=== PATIENT | female | born 1960 | race Hispanic/Latino ===

== ENCOUNTER 2019-12-06 05:36 | Inpatient (IN) | payer OTHER ==
[~2019-12-06] VITALS: Ht 149.9 cm; Wt 74.6 kg
[2019-12-06 06:45] LABS: BASOPHILS % (AUTO) 0.2 % (0.0-5.0); HEMATOCRIT 32.5 % (36-48); LYMPHOCYTES % (AUTO) 27.4 % (21.0-51.0); MEAN CORPUSCULAR HEMOGLOBIN 32.3 pg (27.0-33.0); MEAN CORPUSCULAR HGB CONC 34.2 g/dL (32.0-36.0); MEAN CORPUSCULAR VOLUME 94.5 fL (79-99); MONOCYTES % (AUTO) 8.4 % (3.0-13.0); NEUTROPHILS % (AUTO) 63.1 % (40.0-77.0); PLATELET COUNT (AUTO) 180 K/uL (130-400); RED BLOOD CELL COUNT(AUTO) 3.44 MIL/uL (4.00-5.50); RED CELL DISTRIBUTION WIDTH 14.3 % (11.0-15.5); WHITE BLOOD COUNT (AUTO) 4.3 K/uL (4.8-10.8)
[2019-12-06 06:59] LABS: ALBUMIN 3.3 g/dL (3.5-5.0); BILIRUBIN,TOTAL 0.4 mg/dL (0.2-1.0); CREATININE 0.8 mg/dL (0.5-1.5); POTASSIUM 3.2 mmol/L (3.5-5.1)
[2019-12-06 07:12] LABS: B-TYPE NATRIURETIC PEPTIDE 7 pg/mL (0-100)
[2019-12-06] MEDS ORDERED: GUAIFENESIN SUGAR-FREE 100 MG/5 ML UDCUP ONE (08:37)
[2019-12-06] MEDS ORDERED: ZOSYN 3.375GM+NS 50ML 50 ML IV ONE (08:37)
[2019-12-06] MEDS ORDERED: POTASSIUM CHLORIDE 20 MEQ ERTAB PO ONE (08:37)
[2019-12-06] MEDS ORDERED: ACETAMINOPHEN 325 MG TAB ONE (08:37)
[2019-12-06] MEDS ORDERED: DOXYCYCLINE 100MG+NS 250ML IV SCH (08:45)
[2019-12-06] MEDS ORDERED: ONDANSETRON HCL 4 MG/2 ML VIAL IV PRN (08:45)
[2019-12-06] MEDS ORDERED: ACETAMINOPHEN 325 MG TAB PO PRN (08:45)
[2019-12-06] MEDS ORDERED: DIPHENHYDRAMINE HCL 25 MG CAPSULE PO PRN (08:45)
[2019-12-06] MEDS ORDERED: DiphenhydrAMINE HCL 50 MG/ML VIAL IV PRN (08:45)
[2019-12-06] MEDS ORDERED: MAG HYDROX/AL HYDROX/SIMETH ES 30 ML SUSP UDCUP PO PRN (08:45)
[2019-12-06] MEDS ORDERED: NITROGLYCERIN 0.4 MG SL TAB SL PRN (08:45)
[2019-12-06] MEDS ORDERED: HYDRALAZINE HCL 20 MG/ML VIAL IV PRN (08:45)
[2019-12-06] MEDS ORDERED: ERGOCALCIFEROL (VITAMIN D2) 50,000 UNIT CAPSULE PO SCH (08:45)
[2019-12-06] MEDS ORDERED: FAMOTIDINE 20MG TAB 20 MG TAB PO SCH (09:00)
[2019-12-06 09:20] LABS: CRP QUANTITATIVE 153.5 mg/L (0.00-9.0)
[2019-12-06] MEDS: BENZONATATE 100 MG CAPSULE PO SCH ×3 (10:46→21:04)
[2019-12-06] MEDS: ACETYLCYSTEINE 600 MG CAPSULE PO SCH ×2 (10:46→21:04)
[2019-12-06] MEDS: ASCORBIC ACID 500 MG TAB PO SCH (10:46)
[2019-12-06] MEDS: METHYLPREDNISOLONE SOD SUCC 40MG/ML 1ML IVP SCH ×3 (10:46→21:04)
[2019-12-06] MEDS: CEFTRIAXONE SODIUM 1 GM IVP SCH ×2 (10:47→21:04)
[2019-12-06] MEDS: ZINC SULFATE 220 CAPSULE PO SCH (10:47)
[2019-12-06] MEDS: DOXYCYCLINE 100MG+NS 250ML 250 ML IV SCH ×2 (10:48→21:03)
[2019-12-06] MEDS: ENOXAPARIN SODIUM 40 MG/0.4 ML SYRINGE SQ SCH (10:48)
[2019-12-06 11:41] VITALS: BP 110/68
[2019-12-06 16:00] VITALS: BP 117/70
[2019-12-06 19:33] VITALS: BP 124/74
[2019-12-06] MEDS: FAMOTIDINE/PF 20 MG/2 ML VIAL IV SCH (21:04)
[2019-12-06 23:47] VITALS: BP 119/64
[2019-12-07 03:22] VITALS: BP 117/63
[2019-12-07 07:47] LABS: BASOPHILS % (AUTO) 0.2 % (0.0-5.0); HEMATOCRIT 34.8 % (36-48); LYMPHOCYTES % (AUTO) 27.4 % (21.0-51.0); MEAN CORPUSCULAR HEMOGLOBIN 32.6 pg (27.0-33.0); MEAN CORPUSCULAR HGB CONC 33.9 g/dL (32.0-36.0); MEAN CORPUSCULAR VOLUME 96.1 fL (79-99); MONOCYTES % (AUTO) 11.1 % (3.0-13.0); NEUTROPHILS % (AUTO) 60.5 % (40.0-77.0); PLATELET COUNT (AUTO) 224 K/uL (130-400); RED BLOOD CELL COUNT(AUTO) 3.62 MIL/uL (4.00-5.50); RED CELL DISTRIBUTION WIDTH 14.5 % (11.0-15.5)
[2019-12-07 08:08] LABS: ALANINE AMINOTRANSFERASE 40 U/L (12-78); ASPARTATE AMINOTRANSFERASE 50 U/L (10-37); BILIRUBIN,TOTAL 0.3 mg/dL (0.2-1.0); CARBON DIOXIDE 29 mmol/L (21-32); CHLORIDE 104 mmol/L (101-111); CREATININE 0.6 mg/dL (0.5-1.5); GLOMERULAR FILTR. RATE CALC 108 mL/min (>60); GLUCOSE,RANDOM 162 mg/dL (70-105); LACTATE DEHYDROGENASE 498 U/L (81-234); POTASSIUM 3.7 mmol/L (3.5-5.1); SODIUM SERUM 141 mmol/L (136-145); TOTAL PROTEIN, SERUM 7.2 g/dL (6.0-8.3); UREA NITROGEN, BLOOD 6 mg/dL (7-18)
[2019-12-07 08:29] VITALS: BP 113/62
[2019-12-07] MEDS: CEFTRIAXONE SODIUM 1 GM IVP SCH ×2 (09:11→20:27)
[2019-12-07] MEDS: DOXYCYCLINE 100MG+NS 250ML 250 ML IV SCH ×2 (09:12→20:27)
[2019-12-07] MEDS: ENOXAPARIN SODIUM 40 MG/0.4 ML SYRINGE SQ SCH (09:12)
[2019-12-07] MEDS: ACETYLCYSTEINE 600 MG CAPSULE PO SCH ×2 (09:13→20:28)
[2019-12-07] MEDS: ASCORBIC ACID 500 MG TAB PO SCH (09:14)
[2019-12-07] MEDS: ZINC SULFATE 220 CAPSULE PO SCH (09:14)
[2019-12-07] MEDS: METHYLPREDNISOLONE SOD SUCC 40MG/ML 1ML IVP SCH ×3 (09:14→20:27)
[2019-12-07] MEDS: FAMOTIDINE/PF 20 MG/2 ML VIAL IV SCH ×2 (09:14→20:27)
[2019-12-07] MEDS: BENZONATATE 100 MG CAPSULE PO SCH ×3 (09:14→20:27)
[2019-12-07 12:00] VITALS: BP 121/72
--- NOTE | 2019-12-07 12:29 | NUR ---
DC Plan Patient requested to have son removed from face sheet and replace with sister Kely Weeks (ph: [phone]) for both Next of Kin and Person to Notify. Notified financial counselors via email. [facility] lives with 2 adult sons and their children (total of 10 in the house). States everyone helps out. Sister Kely helps with insurance and anything medical. States ambulates with use of a cane. Verbalized feeling weak due to chemo treatment. Informed CM of previous insurance with [employer] that in October. States should have TRS that will be in effect 90 days from time of dismissal. Informed CM that sister knows more. Emailed this info to financial counselors and to [employer]. No others needs verbalized. DCP is back to home with family. CD Addendum: 12/07/19 at 1237 by ALONDRA ZHU CM Amended: Links added.
--- NOTE | 2019-12-07 15:04 | NUR ---
PHONE CALL Family updated.
[2019-12-07 16:12] VITALS: BP 119/59
[2019-12-07] MEDS ORDERED: POTASSIUM CHLORIDE 10% ELIXIR 20 MEQ/15 ML UDCUP PO PRN (18:45)
[2019-12-07] MEDS ORDERED: LIDOCAINE HCL-MPF 1% 2ML VIAL IV PRN (18:45)
[2019-12-07] MEDS ORDERED: POTASSIUM CHLORIDE 20MEQ/100ML 100 ML IV PRN (18:45)
[2019-12-07 20:38] VITALS: BP 127/75
[2019-12-07 23:53] VITALS: BP 123/72
[2019-12-08 04:19] VITALS: BP 113/68
[2019-12-08 05:38] LABS: BASOPHILS % (AUTO) 0.1 % (0.0-5.0); HEMATOCRIT 32.2 % (36-48); LYMPHOCYTES % (AUTO) 11.9 % (21.0-51.0); MEAN CORPUSCULAR HEMOGLOBIN 32.4 pg (27.0-33.0); MEAN CORPUSCULAR HGB CONC 34.2 g/dL (32.0-36.0); MEAN CORPUSCULAR VOLUME 94.7 fL (79-99); NEUTROPHILS % (AUTO) 82.2 % (40.0-77.0); PLATELET COUNT (AUTO) 247 K/uL (130-400); RED CELL DISTRIBUTION WIDTH 14.6 % (11.0-15.5)
[2019-12-08 06:02] LABS: ALANINE AMINOTRANSFERASE 35 U/L (12-78); ALBUMIN 2.8 g/dL (3.5-5.0); ASPARTATE AMINOTRANSFERASE 38 U/L (10-37); BILIRUBIN,TOTAL 0.2 mg/dL (0.2-1.0); CARBON DIOXIDE 27 mmol/L (21-32); CHLORIDE 106 mmol/L (101-111); CREATININE 0.7 mg/dL (0.5-1.5); GLOMERULAR FILTR. RATE CALC 90 mL/min (>60); GLUCOSE,RANDOM 238 mg/dL (70-105); LACTATE DEHYDROGENASE 412 U/L (81-234); POTASSIUM 3.4 mmol/L (3.5-5.1); SODIUM SERUM 140 mmol/L (136-145); TOTAL PROTEIN, SERUM 6.5 g/dL (6.0-8.3); UREA NITROGEN, BLOOD 11 mg/dL (7-18)
[2019-12-08 08:00] VITALS: BP 113/66
--- NOTE | 2019-12-08 08:00 | NUR ---
ASSESSMENT ENCOUTERED PT A&OX3, CALM COOPERATIVE AND DOES NOT APPEAR TO BE IN ANY DISTRESS NOR ANY NEURO DEFICITS PRESENT. PT DENIES PAIN, DIZZINESS OR LIGHTHEADEDNESS BUT DOES C/O DYSPNEA ON EXERTION, PT IS AMBULATORY, GAIT STEADY AND STRONG WITH STAND BY ASSIST, INFORMED THAT PT MAY HAVE TO BE PLACED ON O2NC EXTENSION TO REDUCE SYMPTOMS OF DYSPNEA ON EXERTION. CALL LIGHT WITHIN REACH.
[2019-12-08] MEDS: DOXYCYCLINE 100MG+NS 250ML 250 ML IV SCH ×2 (09:10→21:01)
[2019-12-08] MEDS: CEFTRIAXONE SODIUM 1 GM IVP SCH ×2 (09:10→21:00)
[2019-12-08] MEDS: ASCORBIC ACID 500 MG TAB PO SCH (09:10)
[2019-12-08] MEDS: BENZONATATE 100 MG CAPSULE PO SCH ×3 (09:10→21:01)
[2019-12-08] MEDS: ZINC SULFATE 220 CAPSULE PO SCH (09:10)
[2019-12-08] MEDS: METHYLPREDNISOLONE SOD SUCC 40MG/ML 1ML IVP SCH ×3 (09:11→21:00)
[2019-12-08] MEDS: ACETYLCYSTEINE 600 MG CAPSULE PO SCH ×2 (09:11→21:01)
[2019-12-08] MEDS: ENOXAPARIN SODIUM 40 MG/0.4 ML SYRINGE SQ SCH (09:11)
[2019-12-08] MEDS: FAMOTIDINE/PF 20 MG/2 ML VIAL IV SCH ×2 (09:11→21:01)
[2019-12-08 12:17] VITALS: BP 105/61
--- NOTE | 2019-12-08 15:45 | NUR ---
Family updated by primary nurse.
[2019-12-08 16:27] VITALS: BP 118/63
[2019-12-08 19:30] VITALS: BP 133/66
[2019-12-08] MEDS: INSULIN LISPRO 100 UNIT/ML 3ML SQ SCH (20:59)
[2019-12-08] MEDS ORDERED: INSULIN GLARGINE 100 UNITS/ML 10 ML VIAL SQ SCH (21:00)
[2019-12-09] VITALS: BP 141/73
[2019-12-09 04:00] VITALS: BP 143/75
[2019-12-09 05:41] LABS: BASOPHILS % (AUTO) 0.2 % (0.0-5.0); HEMATOCRIT 32.8 % (36-48); LYMPHOCYTES % (AUTO) 10.7 % (21.0-51.0); MEAN CORPUSCULAR HEMOGLOBIN 32.2 pg (27.0-33.0); MEAN CORPUSCULAR HGB CONC 33.8 g/dL (32.0-36.0); MEAN CORPUSCULAR VOLUME 95.1 fL (79-99); MONOCYTES % (AUTO) 5.6 % (3.0-13.0); NEUTROPHILS % (AUTO) 80.9 % (40.0-77.0); NUCLEATED RED BLOOD CELLS 0.2 % (0.0-0.19); PLATELET COUNT (AUTO) 280 K/uL (130-400); RED BLOOD CELL COUNT(AUTO) 3.45 MIL/uL (4.00-5.50); RED CELL DISTRIBUTION WIDTH 14.4 % (11.0-15.5); WHITE BLOOD COUNT (AUTO) 9.6 K/uL (4.8-10.8)
[2019-12-09 06:06] LABS: ALANINE AMINOTRANSFERASE 42 U/L (12-78); ASPARTATE AMINOTRANSFERASE 39 U/L (10-37); BILIRUBIN,TOTAL 0.3 mg/dL (0.2-1.0); CARBON DIOXIDE 26 mmol/L (21-32); CHLORIDE 104 mmol/L (101-111); CREATININE 0.6 mg/dL (0.5-1.5); GLOMERULAR FILTR. RATE CALC 108 mL/min (>60); GLUCOSE,RANDOM 189 mg/dL (70-105); LACTATE DEHYDROGENASE 415 U/L (81-234); POTASSIUM 3.3 mmol/L (3.5-5.1); SODIUM SERUM 142 mmol/L (136-145); TOTAL PROTEIN, SERUM 6.7 g/dL (6.0-8.3); UREA NITROGEN, BLOOD 10 mg/dL (7-18)
[2019-12-09] MEDS: INSULIN LISPRO 100 UNIT/ML 3ML SQ SCH ×7 (06:16→21:15)
[2019-12-09 06:18] LABS: HEMOGLOBIN A1C 7.5 % (4.0-6.0)
--- NOTE | 2019-12-09 07:30 | NUR ---
ASSESSMENT ENCOUNTERED PT A&OX3, CALM COOPERATIVE AND DOES NOT APPEAR TO BE IN ANY DISTRESS NOR ANY NEURO DEFICITS PRESENT. PT DENIES PAIN, SOB, NAUSEA. PT IS AMBULATORY, GAIT SLOW BUT STEADY WITH STAND BY ASSIST WITH O2 EXTENSION TUBING. CALL LIGHT WITHIN REACH.
[2019-12-09 08:14] VITALS: BP 96/58
[2019-12-09] MEDS: BENZONATATE 100 MG CAPSULE PO SCH ×3 (09:25→21:12)
[2019-12-09] MEDS: METHYLPREDNISOLONE SOD SUCC 40MG/ML 1ML IVP SCH ×3 (09:25→21:13)
[2019-12-09] MEDS: ASCORBIC ACID 500 MG TAB PO SCH (09:25)
[2019-12-09] MEDS: FAMOTIDINE/PF 20 MG/2 ML VIAL IV SCH ×2 (09:25→21:12)
[2019-12-09] MEDS: CEFTRIAXONE SODIUM 1 GM IVP SCH (09:25)
[2019-12-09] MEDS: ZINC SULFATE 220 CAPSULE PO SCH (09:25)
[2019-12-09] MEDS: DOXYCYCLINE 100MG+NS 250ML 250 ML IV SCH (09:26)
[2019-12-09] MEDS: ENOXAPARIN SODIUM 40 MG/0.4 ML SYRINGE SQ SCH (09:26)
[2019-12-09] MEDS: ACETYLCYSTEINE 600 MG CAPSULE PO SCH ×2 (09:26→21:12)
[2019-12-09 12:35] VITALS: BP 112/63
--- NOTE | 2019-12-09 12:49 | NUR ---
PHONE CALL Patient's daughter, Brynn Nixon was updated and given opportunity to ask questions.
[2019-12-09 16:30] VITALS: BP 144/78
[2019-12-09 19:50] VITALS: BP 127/68
[2019-12-09] MEDS: INSULIN GLARGINE 100 UNITS/ML 10 ML VIAL SQ SCH (21:16)
[2019-12-10] VITALS (7 sets, daily range): BP systolic 111–145; BP diastolic 63–79
[2019-12-10 06:36] LABS: CREATININE 0.6 mg/dL (0.5-1.5); CRP QUANTITATIVE 18.4 mg/L (0.00-9.0); POTASSIUM 3.2 mmol/L (3.5-5.1)
[2019-12-10] MEDS: INSULIN LISPRO 100 UNIT/ML 3ML SQ SCH ×7 (07:30→21:20)
[2019-12-10] MEDS: ASCORBIC ACID 500 MG TAB PO SCH (10:38)
[2019-12-10] MEDS: FAMOTIDINE/PF 20 MG/2 ML VIAL IV SCH ×2 (10:38→20:45)
[2019-12-10] MEDS: ENOXAPARIN SODIUM 40 MG/0.4 ML SYRINGE SQ SCH (10:38)
[2019-12-10] MEDS: ZINC SULFATE 220 CAPSULE PO SCH (10:38)
[2019-12-10] MEDS: ACETYLCYSTEINE 600 MG CAPSULE PO SCH ×2 (10:38→20:46)
[2019-12-10] MEDS: METHYLPREDNISOLONE SOD SUCC 40MG/ML 1ML IVP SCH ×3 (10:44→20:45)
[2019-12-10] MEDS: BENZONATATE 100 MG CAPSULE PO SCH ×3 (10:44→20:45)
[2019-12-10] MEDS: INSULIN GLARGINE 100 UNITS/ML 10 ML VIAL SQ SCH (21:19)
[2019-12-11 04:30] LABS: BASOPHILS % (AUTO) 0.3 % (0.0-5.0); HEMATOCRIT 33.1 % (36-48); LYMPHOCYTES % (AUTO) 12.7 % (21.0-51.0); MEAN CORPUSCULAR HEMOGLOBIN 32.7 pg (27.0-33.0); MEAN CORPUSCULAR VOLUME 93.2 fL (79-99); NEUTROPHILS % (AUTO) 75.5 % (40.0-77.0); NUCLEATED RED BLOOD CELLS 0.4 % (0.0-0.19); PLATELET COUNT (AUTO) 277 K/uL (130-400); RED BLOOD CELL COUNT(AUTO) 3.55 MIL/uL (4.00-5.50); WHITE BLOOD COUNT (AUTO) 9.2 K/uL (4.8-10.8)
[2019-12-11 04:50] LABS: CREATININE 0.6 mg/dL (0.5-1.5); CRP QUANTITATIVE 12.9 mg/L (0.00-9.0); POTASSIUM 3.1 mmol/L (3.5-5.1)
[2019-12-11] MEDS: INSULIN LISPRO 100 UNIT/ML 3ML SQ SCH ×7 (06:30→21:32)
[2019-12-11 08:00] VITALS: BP 129/70
[2019-12-11] MEDS: METHYLPREDNISOLONE SOD SUCC 40MG/ML 1ML IVP SCH ×3 (09:15→21:28)
[2019-12-11] MEDS: FAMOTIDINE/PF 20 MG/2 ML VIAL IV SCH ×2 (09:15→21:28)
[2019-12-11] MEDS: BENZONATATE 100 MG CAPSULE PO SCH ×3 (09:15→21:28)
[2019-12-11] MEDS: ACETYLCYSTEINE 600 MG CAPSULE PO SCH ×2 (09:15→21:00)
[2019-12-11] MEDS: ZINC SULFATE 220 CAPSULE PO SCH (09:16)
[2019-12-11] MEDS: ENOXAPARIN SODIUM 40 MG/0.4 ML SYRINGE SQ SCH (09:16)
[2019-12-11] MEDS: ASCORBIC ACID 500 MG TAB PO SCH (09:16)
[2019-12-11 12:00] VITALS: BP 135/72
[2019-12-11 16:00] VITALS: BP 124/72
[2019-12-11 19:00] VITALS: BP 121/71
[2019-12-11] MEDS: INSULIN GLARGINE 100 UNITS/ML 10 ML VIAL SQ SCH (21:31)
[2019-12-11 23:00] VITALS: BP 124/70
[2019-12-12 03:00] VITALS: BP 130/71
[2019-12-12] MEDS: INSULIN LISPRO 100 UNIT/ML 3ML SQ SCH ×5 (05:18→21:00)
[2019-12-12 06:05] LABS: BASOPHILS % (AUTO) 0.4 % (0.0-5.0); HEMATOCRIT 33.8 % (36-48); LYMPHOCYTES % (AUTO) 10.9 % (21.0-51.0); MEAN CORPUSCULAR HEMOGLOBIN 32.9 pg (27.0-33.0); MEAN CORPUSCULAR HGB CONC 34.6 g/dL (32.0-36.0); MEAN CORPUSCULAR VOLUME 94.9 fL (79-99); MONOCYTES % (AUTO) 8.8 % (3.0-13.0); NEUTROPHILS % (AUTO) 73.9 % (40.0-77.0); PLATELET COUNT (AUTO) 258 K/uL (130-400); RED BLOOD CELL COUNT(AUTO) 3.56 MIL/uL (4.00-5.50); RED CELL DISTRIBUTION WIDTH 14.2 % (11.0-15.5); WHITE BLOOD COUNT (AUTO) 8.9 K/uL (4.8-10.8)
[2019-12-12 06:27] LABS: CREATININE 0.6 mg/dL (0.5-1.5); CRP QUANTITATIVE 8.5 mg/L (0.00-9.0); POTASSIUM 3.2 mmol/L (3.5-5.1)
[2019-12-12 06:42] LABS: B-TYPE NATRIURETIC PEPTIDE 23 pg/mL (0-100)
[2019-12-12 07:30] VITALS: BP 104/64
[2019-12-12] MEDS ORDERED: POTASSIUM CHLORIDE 20 MEQ ERTAB PO SCH (08:15)
[2019-12-12] MEDS: ACETYLCYSTEINE 600 MG CAPSULE PO SCH ×2 (09:15→20:41)
[2019-12-12] MEDS: METFORMIN HCL 500 MG TABLET PO SCH ×2 (09:15→16:39)
[2019-12-12] MEDS: BENZONATATE 100 MG CAPSULE PO SCH ×3 (09:15→20:42)
[2019-12-12] MEDS: ASCORBIC ACID 500 MG TAB PO SCH (09:15)
[2019-12-12] MEDS: DEXAMETHASONE 4 MG TAB PO SCH (09:17)
[2019-12-12] MEDS: APIXABAN 2.5 MG TABLET PO SCH ×2 (09:18→20:41)
[2019-12-12] MEDS: FAMOTIDINE/PF 20 MG/2 ML VIAL IV SCH ×2 (09:18→20:40)
[2019-12-12] MEDS: ENOXAPARIN SODIUM 40 MG/0.4 ML SYRINGE SQ SCH (09:19)
[2019-12-12] MEDS: ZINC SULFATE 220 CAPSULE PO SCH (09:23)
[2019-12-12 11:30] VITALS: BP 107/65
--- NOTE | 2019-12-12 11:45 | NUR ---
PHYSICIAN ROUNDS DR LISA GONZALEZ ROUNDED ON PATIENT NO ORDERS RECEIVED
[2019-12-12 15:30] VITALS: BP 126/68
[2019-12-12 19:00] VITALS: BP 127/77
[2019-12-12 23:00] VITALS: BP 118/61
[2019-12-13 03:00] VITALS: BP 137/67
[2019-12-13] MEDS: ACETAMINOPHEN 325 MG TAB PO PRN ×2 (06:07→13:04)
[2019-12-13] MEDS: INSULIN LISPRO 100 UNIT/ML 3ML SQ SCH ×4 (07:16→21:00)
[2019-12-13 07:30] VITALS: BP 130/65
[2019-12-13] MEDS: METFORMIN HCL 500 MG TABLET PO SCH ×2 (07:45→16:11)
[2019-12-13] MEDS: ACETYLCYSTEINE 600 MG CAPSULE PO SCH ×2 (07:45→21:48)
[2019-12-13] MEDS: FAMOTIDINE/PF 20 MG/2 ML VIAL IV SCH ×2 (07:45→21:45)
[2019-12-13] MEDS: APIXABAN 2.5 MG TABLET PO SCH ×2 (07:46→21:46)
[2019-12-13] MEDS: DEXAMETHASONE 4 MG TAB PO SCH (07:47)
[2019-12-13] MEDS: ZINC SULFATE 220 CAPSULE PO SCH (07:47)
[2019-12-13] MEDS: ASCORBIC ACID 500 MG TAB PO SCH (07:47)
[2019-12-13] MEDS: ENOXAPARIN SODIUM 40 MG/0.4 ML SYRINGE SQ SCH (07:49)
[2019-12-13] MEDS: BENZONATATE 100 MG CAPSULE PO SCH ×3 (07:49→21:48)
[2019-12-13 11:30] VITALS: BP 100/66
[2019-12-13 15:30] VITALS: BP 117/73
[2019-12-13] MEDS: LACTULOSE 20 GM/30 ML UDCUP PO PRN (16:11)
[2019-12-13 20:00] VITALS: BP 122/78
[2019-12-14] VITALS (8 sets, daily range): BP systolic 90–134; BP diastolic 52–79
[2019-12-14 04:45] LABS: BASOPHILS % (AUTO) 0.5 % (0.0-5.0); EOSINOPHILS % (AUTO) 0.8 % (0.0-8.0); HEMATOCRIT 33.3 % (36-48); LYMPHOCYTES % (AUTO) 21.5 % (21.0-51.0); MEAN CORPUSCULAR HEMOGLOBIN 32.6 pg (27.0-33.0); MEAN CORPUSCULAR HGB CONC 34.5 g/dL (32.0-36.0); MEAN CORPUSCULAR VOLUME 94.3 fL (79-99); MONOCYTES % (AUTO) 14.2 % (3.0-13.0); NEUTROPHILS % (AUTO) 57.2 % (40.0-77.0); PLATELET COUNT (AUTO) 230 K/uL (130-400); RED BLOOD CELL COUNT(AUTO) 3.53 MIL/uL (4.00-5.50); RED CELL DISTRIBUTION WIDTH 14.6 % (11.0-15.5); WHITE BLOOD COUNT (AUTO) 6.5 K/uL (4.8-10.8)
[2019-12-14 05:18] LABS: CREATININE 0.7 mg/dL (0.5-1.5); CRP QUANTITATIVE 2.5 mg/L (0.00-9.0); POTASSIUM 3.7 mmol/L (3.5-5.1)
[2019-12-14 05:52] LABS: B-TYPE NATRIURETIC PEPTIDE 20 pg/mL (0-100)
[2019-12-14] MEDS: INSULIN LISPRO 100 UNIT/ML 3ML SQ SCH ×4 (06:42→20:43)
--- NOTE | 2019-12-14 08:30 | NUR ---
AM ASSESSMENT PT AWAKE, ALERT, AND ORIENTED. DENIES CHEST PAIN OR SOB, PT ON ROOM AIR, O2 SAT 92%. ASSISTANCE WITH ADLS, FALL PRECAUTIONS. UP TO CHAIR WITH SUPERVISION.
[2019-12-14] MEDS: ENOXAPARIN SODIUM 40 MG/0.4 ML SYRINGE SQ SCH ×2 (09:00→09:10)
[2019-12-14] MEDS: DEXAMETHASONE 4 MG TAB PO SCH (09:06)
[2019-12-14] MEDS: METFORMIN HCL 500 MG TABLET PO SCH ×2 (09:07→17:36)
[2019-12-14] MEDS: BENZONATATE 100 MG CAPSULE PO SCH ×3 (09:07→20:48)
[2019-12-14] MEDS: FAMOTIDINE/PF 20 MG/2 ML VIAL IV SCH (09:08)
[2019-12-14] MEDS: ZINC SULFATE 220 CAPSULE PO SCH (09:08)
[2019-12-14] MEDS: ACETYLCYSTEINE 600 MG CAPSULE PO SCH ×2 (09:08→20:48)
[2019-12-14] MEDS: ASCORBIC ACID 500 MG TAB PO SCH (09:08)
[2019-12-14] MEDS: APIXABAN 2.5 MG TABLET PO SCH ×2 (09:08→20:48)
--- NOTE | 2019-12-14 09:15 | NUR ---
LOVENOX LOVENOX DOSE HELD , PT ON ELIQUIS
[2019-12-14] MEDS: LACTULOSE 20 GM/30 ML UDCUP PO PRN (17:36)
[2019-12-14] MEDS: FAMOTIDINE 20MG TAB 20 MG TAB PO SCH (20:48)
[2019-12-15 03:11] VITALS: BP 130/59
[2019-12-15 04:57] LABS: BASOPHILS % (AUTO) 0.3 % (0.0-5.0); EOSINOPHILS % (AUTO) 0.4 % (0.0-8.0); HEMATOCRIT 32.6 % (36-48); LYMPHOCYTES % (AUTO) 17.9 % (21.0-51.0); MEAN CORPUSCULAR HEMOGLOBIN 33.4 pg (27.0-33.0); MEAN CORPUSCULAR HGB CONC 35.3 g/dL (32.0-36.0); MEAN CORPUSCULAR VOLUME 94.8 fL (79-99); MONOCYTES % (AUTO) 12.6 % (3.0-13.0); NEUTROPHILS % (AUTO) 64.2 % (40.0-77.0); PLATELET COUNT (AUTO) 232 K/uL (130-400); RED BLOOD CELL COUNT(AUTO) 3.44 MIL/uL (4.00-5.50); RED CELL DISTRIBUTION WIDTH 14.6 % (11.0-15.5); WHITE BLOOD COUNT (AUTO) 6.8 K/uL (4.8-10.8)
[2019-12-15 05:42] LABS: CREATININE 0.5 mg/dL (0.5-1.5); CRP QUANTITATIVE 6.5 mg/L (0.00-9.0); POTASSIUM 3.4 mmol/L (3.5-5.1)
[2019-12-15] MEDS: INSULIN LISPRO 100 UNIT/ML 3ML SQ SCH ×3 (06:41→16:30)
[2019-12-15 08:00] VITALS: BP 125/76
[2019-12-15] MEDS: APIXABAN 2.5 MG TABLET PO SCH (09:49)
[2019-12-15] MEDS: BENZONATATE 100 MG CAPSULE PO SCH ×2 (09:49→14:52)
[2019-12-15] MEDS: ACETYLCYSTEINE 600 MG CAPSULE PO SCH (09:49)
[2019-12-15] MEDS: ASCORBIC ACID 500 MG TAB PO SCH (09:49)
[2019-12-15] MEDS: FAMOTIDINE 20MG TAB 20 MG TAB PO SCH (09:49)
[2019-12-15] MEDS: ZINC SULFATE 220 CAPSULE PO SCH (09:49)
[2019-12-15] MEDS: DEXAMETHASONE 4 MG TAB PO SCH (09:50)
[2019-12-15] MEDS: METFORMIN HCL 500 MG TABLET PO SCH ×2 (09:54→17:34)
[2019-12-15 11:30] VITALS: BP 107/71
[2019-12-15] MEDS ORDERED: METF-444 PO (14:36)
[2019-12-15] MEDS ORDERED: APIX2.5T PO (14:36)
[2019-12-15] MEDS ORDERED: DEXA6TAB PO (14:36)
[2019-12-15 15:30] VITALS: BP 122/69
--- NOTE | 2019-12-15 17:48 | NUR ---
PT AAOx4. COVID+ WITH ISOLATION PRECAUTIONS MAINTAINED. TOLERATING ROOM AIR WITHOUT DISTRESS NOTED. IV ACCESS REMOVED. TELEMETRY REMOVED. DISCHARGE INSTRUCTION REVIEWED WITH PATIENT AND PATIENT'S SISTER VIA TELEPHONE WITH UNDERSTANDING VERBALIZED. TRANSPORTED VIA WHEELCHAIR TO PRIVATE VEHICLE. ACCOMPANIED BY FAMILY.
== END 2019-12-15 17:54 | disposition home or self-care (01) | DRG 177 ==
LOC: EDH 05:36 → EDHIP 05:37 → 2AH 10:32
PROVIDERS: ADMIT Family Medicine; ATTEND Family Medicine
DX: U07.1 COVID-19 (principal); J12.89 Other viral pneumonia; J96.01 Acute respiratory failure with hypoxia; C34.90 Malignant neoplasm of unspecified part of unspecified bronchus or lung; Z92.21 Personal history of antineoplastic chemotherapy; J45.909 Unspecified asthma, uncomplicated; Z68.32 Body mass index [BMI] 32.0-32.9, adult; E87.6 Hypokalemia; Z79.4 Long term (current) use of insulin; Z79.01 Long term (current) use of anticoagulants; E11.65 Type 2 diabetes mellitus with hyperglycemia
CPT/HCPCS: 0099U; 36415; 71045; 80048; 80053; 82550; 82728; 82948; 83036; 83605; 83615; 83880; 84145; 84484; 85025; 85378; 86140; 86850; 86900; 86901; 87040; 87804; 93005; G0378; J0696; J1650; J2543; J2920; J3490; J8540; U0003